=== PATIENT | male | born 1995 | race Two or more races ===

== ENCOUNTER 2022-11-30 11:15 | Emergency (ER) | payer SELFPAY ==
[~2022-11-30] VITALS: Ht 180.3 cm; Wt 84.7 kg
[2022-11-30 11:40] VITALS: BP 125/73
[2022-11-30] MEDS ORDERED: KETOROLAC TROMETH 60MG/2ML VIAL IM ONE (12:30)
[2022-11-30] MEDS ORDERED: HYDROcodone-ACET 10/325MG TAB PO ONE (14:15)
[2022-11-30] MEDS ORDERED: ONDA-144 PO (14:43)
[2022-11-30] MEDS ORDERED: IBUP-1455 PO (14:43)
== END 2022-11-30 14:50 | disposition home or self-care (01) ==
LOC: ER 11:15
DX: R51.9 Headache, unspecified (principal)
CPT/HCPCS: 70450; 96372; 99285; J1885